=== PATIENT | male | born 1985 | race Caucasian/White ===

== ENCOUNTER 2025-07-25 02:03 | Emergency (ER) | payer OTHER, BC ==
[~2025-07-25] VITALS: Ht 175.3 cm; Wt 88.5 kg
--- NOTE | 2025-07-25 02:08 | NUR ---
UA CUP PROVIDED
--- NOTE | 2025-07-25 02:37 | ERN ---
General Chief Complaint: Chest Pain Stated Complaint: CHEST PAIN Time Seen by MD: 02:20 Source: patient History of Present Illness Initial Comments 40-year-old male with a past medical history of hypercholesterolemia comes in with chest tightness and pressure for a week, it is worse today. No other symptoms no shortness of breath no fevers or chills. Timing/Duration: 1 week Allergies: Coded Allergies: No Known Allergies (Unverified Allergy, Unknown, 07/25/25) Past Medical History Past Medical History: High Cholesterol, Hypertension Past Surgical History: None Constitutional: (-) chills, (-) diaphoresis, (-) fever, (-) malaise, (-) weakness, (-) other documentation EENTM: (-) eye pain, (-) blurred vision, (-) tearing, (-) double vision, (-) ear pain, (-) ear discharge, (-) nose pain, (-) nose congestion, (-) throat pain, (-) Throat swelling, (-) mouth pain, (-) tooth pain, (-) mouth swelling, (-) other documentation Respiratory: (-) cough, (-) orthopnea, (-) short of breath, (-) stridor, (-) wheezing, (-) other documentation Cardiovascular: (-) chest pain, (-) edema, (-) palpitations, (-) syncope, (-) dyspnea on exertion, (-) other documentation Gastrointestinal/Abdominal: (-) nausea, (-) vomiting, (-) diarrhea, (-) abdominal pain, (-) abdominal distention, (-) constipation, (-) rectal bleeding, (-) dark stool/melena, (-) other documentation Genitourinary: (-) penile discharge, (-) dysuria, (-) frequency, (-) hematuria, (-) pain, (-) other documentation Musculoskeletal: (-) Neck pain, (-) back pain, (-) Flank Pain, (-) joint pain, (-) joint swelling, (-) muscle pain, (-) muscle stiffness, (-) gout, (-) other documentation Physical Exam General Appearance: (+) mild distress Orientation: (+) alert, (+) oriented x 3 Head/Face Trauma: No Eye: bilateral eye normal inspection, bilateral eye PERRL, bilateral eye EOMI Ear, Nose, Throat: (+) hearing grossly normal, (+) normal ENT inspection, (+) moist mucous membraine Neck: (+) normal inspection, (+) supple, (+) full range of motion, (+) no JVD Respiratory: (+) chest non-tender, (+) lungs clear, (+) well ventilated Heart: (+) regular, (+) no gallop Vascular: (+) no edema, (+) normal peripheral pulse, (+) no JVD Gastrointestinal: (+) soft, (+) non-tender, (+) bowel sound present Results Laboratory and Microbiology Lab and Micro Result Laboratory Tests Test 07/25/25 02:30 07/25/25 02:50 Urine Color YELLOW (YELLOW) Urine Appearance CLEAR (CLEAR) Urine pH 5.5 (5.0-8.0) Urine Specific [place] 1.029 (1.001-1.031) Urine Protein 20 mg/dL (NEGATIVE) H Urine Glucose (UA) NEGATIVE mg/dL (NEGATIVE) Urine Ketones 20 mg/dL (NEGATIVE) H Urine Occult Blood MODERATE (NEGATIVE) H Urine Nitrate NEGATIVE (NEGATIVE) Urine Bilirubin NEGATIVE mg/dL (NEGATIVE) Urine Urobilinogen 0.2 mg/dL (0.2-1.0) Urine Leukocyte Esterase NEGATIVE Debbie/uL Urine RBC 2-5 /HPF (0-1) H Urine WBC 2-5 /HPF (0-1) H Urine Squamous Epithelial Cells RARE /HPF (0-2) Urine Bacteria None /HPF (None Seen) White Blood Count 4.5 K/uL (4.8-10.8) L Red Blood Count 4.98 MIL/uL (4.50-6.20) Hemoglobin 14.2 g/dL (14.0-18.0) Hematocrit 40.6 % (42-54) L Mean Corpuscular Volume 81.5 fL (79-99) Mean Corpuscular Hemoglobin 28.5 pg (27.0-33.0) Mean Corpuscular Hemoglobin Concent 35.0 g/dL (32.0-36.0) Red Cell Distribution Width 12.1 % (11.0-15.5) Platelet Count 251 K/uL (130-400) Mean Platelet Volume 8.5 fL (7.5-10.5) Immature Granulocyte % (Auto) 0.0 % (0-1) Neutrophils (%) (Auto) 47.2 % (40.0-77.0) Lymphocytes (%) (Auto) 42.3 % (21.0-51.0) Monocytes (%) (Auto) 8.9 % (3.0-13.0) Eosinophils (%) (Auto) 0.9 % (0.0-8.0) Basophils (%) (Auto) 0.7 % (0.0-5.0) Neutrophils # (Auto) 2.1 K/uL (1.8-7.7) Lymphocytes # (Auto) 1.9 K/uL (1.0-4.8) Monocytes # (Auto) 0.4 K/uL (0.1-1.0) Eosinophils # (Auto) 0.04 K/uL (0.00-0.70) Basophils # (Auto) 0.03 K/uL (0.00-0.20) Absolute Immature Granulocyte (auto 0.00 K/uL (0-1) Nucleated Red Blood Cells 0.0 % (0.0-0.19) Sodium Level 136 mmol/L (136-145) Potassium Level 3.6 mmol/L (3.5-5.1) Chloride Level 100 mmol/L (101-111) L Carbon Dioxide Level 27 mmol/L (21-32) Blood Urea Nitrogen 19 mg/dL (7-18) H Creatinine 1.2 mg/dL (0.5-1.3) Glomerular Filtration Rate Calc 78 mL/min (>90) Random Glucose 87 mg/dL (70-105) Total Calcium 8.9 mg/dL (8.5-10.1) Magnesium Level 2.20 mg/dL (1.80-2.40) Total Creatine Kinase 557 U/L (21-232) *H Troponin I High Sensitivity 6 ng/L (4-75) MDM MDM: Differential diagnosis: Cardiac pain, GERD, dehydration, asthma, hiatal hernia Rationale: Tests considered and ordered secondary to shared decision making i nclude: Previous outside records reviewed: Old ER visits. Risk of complication and/or morbidity or mortality of patient management: None Medications-Per medication reconciliation Need for hospitalization: Patient does meet criteria for hospitalization. Need for emergency major/minor surgery: No There are no social concerns with this patient. Prescription drug management Prescriptions will include symptomatic care Patient's prior external medical records from other ER visits were reviewed by me as indicated. Prior testing and results from previous visits were reviewed. Prior tests were taken into account with medical decision making and resource utilization, independent historian/historians were used to obtain complete medical history. I independently interpreted the test that were performed, results were reviewed by me and considered findings on radiology if ordered. Patient's laboratory analysis shows a normal CBC. His chemistry panel shows an elevated creatinine kinase to 557 and a mildly elevated BUN to 19. His cardiac enzymes are negative. The urine showed high degree of ketones as well as small amount of blood. All of this is consistent with dehydration and possible overexertion. ED Course Orders Procedure Category Date Status Time Vital Signs Per CPOE 07/25/25 Transmitted Routine 02:05 Chest 1vw RAD 07/25/25 Resulted 02:05 12 Lead Ekg Tracing- EKG 07/25/25 Logged Technical 02:05 Oxygen By Nc/Pulse Ox CPOE 07/25/25 Transmitted 02:05 Maintain Iv CPOE 07/25/25 Transmitted 02:05 Iv Insertion CPOE 07/25/25 Transmitted 02:05 Cardiac Monitoring CPOE 07/25/25 Transmitted 02:05 Pulse Oximetry With CPOE 07/25/25 Transmitted Vs And Prn 02:05 Cbc With Differential LAB 07/25/25 Complete 02:05 Activity: Br W/Brp CPOE 07/25/25 Transmitted With Assist 02:05 Creatine Kinase, Total LAB 07/25/25 Complete 02:05 Troponin I High LAB 07/25/25 Complete Sensitivity 02:05 Urinalysis Profile LAB 07/25/25 Complete 02:05 Basic Metabolic Panel LAB 07/25/25 Complete 02:05 Lactated Ringers PHA 07/25/25 Complete 1000ml (Lactated 02:27 Magnesium LAB 07/25/25 Complete 03:25 Current Medications Medications (Trade) Dose Ordered Sig/Mera Route PRN Reason Start Time Stop Time Status Last Admin Dose Admin Lactated Ringer's (Lactated Ringers 1000ml) 1,000 ml BOLUS STAT IV 07/25/25 02:27 07/25/25 02:31 DC 07/25/25 02:54 Vital Signs Date Time Temp Pulse Resp B/P (MAP) Pulse Ox O2 Delivery O2 Flow Rate FiO2 07/25/25 04:08 98.8 65 16 129/82 97 Room Air* 0 21 07/25/25 02:21 99.0 82 16 127/83 99 Room Air* 0 21 07/25/25 02:04 98.2 92 18 131/86 97 Room Air DX & DISP Disposition: Discharge Departure Impression: Primary Impression: Hematuria Additional Impression: Dehydration Condition: Stable Additional Instructions: I think you were dehydrated. Your cardiac enzymes were normal your chest x-ray was normal your EKG was normal. You had ketones in her urine consistent with dehydration and you had some blood in your urine as well. The blood in your urine could be from dehydration or a kidney stone or running. I recommend you keep your [facility] appointment to follow up with the hematuria to see if it resolves with hydration. You should drink enough fluid every day so that your urine runs clear at least once a day. You do not have a urinary tract infection Referrals: NONE (PCP) ALEXEI MANRIQUE MD Jul 25, 2025 02:37
--- NOTE | 2025-07-25 02:53 | HMCIMG ---
EXAM: CR Chest, 1 view CLINICAL HISTORY: Chest pain. COMPARISON: None provided. FINDINGS: The lungs show no infiltrates or other acute findings. No pleural effusion or pneumothorax. The cardiomediastinal silhouette is within normal limits. No acute osseous abnormality. IMPRESSION: No acute cardiopulmonary process is evident. /Clements
[2025-07-25] MEDS: LACTATED RINGERS 1000ML IV STA (02:54)
[2025-07-25 03:05] LABS: IMMATURE GRANULOCYTE ABSOLUTE 0.00 K/uL (0-1); NUCLEATED RED BLOOD CELLS 0.0 % (0.0-0.19); PLATELET COUNT (AUTO) 251 K/uL (130-400); RED BLOOD CELL COUNT(AUTO) 4.98 MIL/uL (4.50-6.20); RED CELL DISTRIBUTION WIDTH 12.1 % (11.0-15.5); WHITE BLOOD COUNT (AUTO) 4.5 K/uL (4.8-10.8)
[2025-07-25 03:14] LABS: CREATININE 1.2 mg/dL (0.5-1.3); GLOMERULAR FILTR. RATE CALC 78.0 mL/min (>90); GLUCOSE,RANDOM 87.0 mg/dL (70-105); SODIUM SERUM 136.0 mmol/L (136-145); UREA NITROGEN, BLOOD 19.0 mg/dL (7-18)
[2025-07-25 03:14] LABS: APPEARANCE,URINE CLEAR (CLEAR); GLUCOSE, URINE (UA) NEGATIVE (NEGATIVE); LEUKOCYTE ESTERASE ,URINE NEGATIVE Leu/uL (NEGATIVE); NITRATE,URINE NEGATIVE (NEGATIVE); OCCULT BLOOD,URINE MODERATE (NEGATIVE)
[2025-07-25 03:16] LABS: ADD UA MICROSCOPIC YES
[2025-07-25 03:17] LABS: SQUAMOUS EPITHELIAL CELL,UR RARE /HPF (0-2)
[2025-07-25 03:32] LABS: CREATINE KINASE, TOTAL 557.0 U/L (21-232)
[2025-07-25 04:08] VITALS: BP 129/82; PULSE 65; RESP 16; TEMP 98.8; O2SAT 97
--- NOTE | 2025-07-25 04:19 | NUR ---
CALLED LAB, SPOKE WITH JUAN. THEY ARE ABLE TO ADD ON A MAGNESIUM
--- NOTE | 2025-07-25 06:42 | EKG ---
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
== END 2025-07-25 04:58 | disposition home or self-care (01) ==
LOC: EDH 02:03
DX: R31.9 Hematuria, unspecified (principal); E86.0 Dehydration; E78.00 Pure hypercholesterolemia, unspecified; I10 Essential (primary) hypertension
CPT/HCPCS: 99285; 96360; 71045; 96361; 82550; 83735; 84484; 80048; 85025; 81001; 36415; 93005; J7120